=== PATIENT | male | born 1980 | race Caucasian/White ===

== ENCOUNTER 2019-07-31 23:08 | Emergency (ER) | payer OTHER ==
[2019-07-31] MEDS ORDERED: DIPH,PERTUS(ACELL)TETVAC-LF 0.5 ML VIAL IM ONE (23:12)
[2019-07-31] MEDS ORDERED: SODIUM CHLORIDE 0.9% 1,000 ML IV STA (23:12)
[2019-07-31 23:17] LABS: Glucose,Whole Blood 146 mg/dL (75-99)
[2019-07-31 23:18] VITALS: BP 140/83; PULSE 79; RESP 18; TEMP 97.7
[2019-07-31 23:21] LABS: Basophils # (A) 0.1 k/uL (0-0.2); Basophils % (A) 1 %; Eosinophils # (A) 0.1 k/uL (0-0.7); Eosinophils % (A) 2 %; HCT 44.6 % (39.0-53.0); HGB 14.7 gm/dL (13.0-17.5); Lymphocytes # (A) 2.3 k/uL (1.0-4.8); Lymphocytes % (A) 42 %; MCH 31.6 pg (25.0-35.0); MCHC 32.9 g/dL (31.0-37.0); MCV 95.9 fL (80.0-100.0); Mean Platelet Volume 6.7; Monocytes # (A) 0.2 k/uL (0-1.0); Monocytes % (A) 4 %; Neutrophils # (A) 2.6 k/uL (1.3-7.7); Neutrophils % (A) 49 %; Platelet Count 306 k/uL (150-450); RBC 4.65 m/uL (4.30-5.90); RDW 12.6 % (11.5-15.5); WBC 5.4 k/uL (3.8-10.6)
[2019-07-31] MEDS ORDERED: MORPHINE SULFATE 4 MG/ML SYRINGE IVP STA (23:27)
[2019-07-31 23:30] LABS: INR 1.1 (<1.2); Partial Thromboplastin Time 22.2 sec (22.0-30.0); Prothrombin Time 11.1 sec (9.0-12.0)
[2019-07-31 23:32] LABS: ALT 13 U/L (4-49); AST 23 U/L (17-59); African American GFR (CKD) >90 (>60 ml/min/1.73 sqM); Albumin 4.2 g/dL (3.5-5.0); Alcohol <10 mg/dL; Alkaline Phosphatase 74 U/L (38-126); Amylase 46 U/L (30-110); Anion Gap 8 mmol/L; Blood Urea Nitrogen 12 mg/dL (9-20); Calcium 9.3 mg/dL (8.4-10.2); Carbon Dioxide 25 mmol/L (22-30); Chloride 104 mmol/L (98-107); Glucose 168 mg/dL (74-99); Non-African American GFR(CKD) >90 (>60 ml/min/1.73 sqM); Potassium 4.5 mmol/L (3.5-5.1); Sodium 137 mmol/L (137-145); Total Bilirubin 0.8 mg/dL (0.2-1.3); Total Protein 6.8 g/dL (6.3-8.2)
[2019-07-31 23:34] LABS: Creatine Kinase 67 U/L (55-170)
[2019-07-31 23:48] LABS: Creatine Kinase MB 0.6 ng/mL (0.0-2.4); Troponin I <0.012 ng/mL (0.000-0.034)
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
[2019-08-01 00:11] LABS: Glucose,Whole Blood 88 mg/dL (75-99)
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
--- NOTE | 2019-08-01 00:18 | XR ---
EXAMINATION TYPE: XR pelvis AP view DATE OF EXAM: 08/01/2019 COMPARISON: NONE HISTORY: Pain TECHNIQUE: FINDINGS: The pelvic ring is intact. Proximal femurs and hip joints are intact. There is contrast in the urinary bladder. Sacroiliac joints appear normal. IMPRESSION: Normal pelvis.
--- NOTE | 2019-08-01 00:19 | XR ---
EXAMINATION TYPE: XR knee complete LT DATE OF EXAM: 08/01/2019 COMPARISON: NONE HISTORY: Pain TECHNIQUE: 3 views FINDINGS: I see no fracture nor dislocation. There is soft tissue deformity over the superior patella could be laceration. There is probably small foreign bodies. There is no sign of joint effusion. The re is spurring on the superior patella. IMPRESSION: No fracture seen. Soft tissue deformity with small foreign bodies.
--- NOTE | 2019-08-01 00:20 | XR ---
EXAMINATION TYPE: XR ankle complete bilateral DATE OF EXAM: 08/01/2019 COMPARISON: NONE HISTORY: Pain TECHNIQUE: 3 views each ankle FINDINGS: Ankle mortise is intact bilaterally. I see no fracture nor dislocation. Joint spaces are no rmal. Soft tissues appear normal. IMPRESSION: Negative bilateral ankle exam.
--- NOTE | 2019-08-01 00:21 | XR ---
EXAMINATION TYPE: XR hand complete RT DATE OF EXAM: 08/01/2019 COMPARISON: NONE HISTORY: Pain TECHNIQUE: 3 views FINDINGS: Metacarpals appear intact. I see no fracture nor dislocation. Joint spaces appear normal. IMPRESSION: Negative right hand exam. No fracture seen.
[2019-08-01 00:32] LABS: Appearance,Urine Clear (Clear); Bilirubin,Urine Negative (Negative); Blood,Urine Negative (Negative); Color,Urine Light Yellow; Glucose,Urine (UA) Negative (Negative); Ketones,Urine Negative (Negative); Leukocyte Esterase,Urine Negative (Negative); Nitrite,Urine Negative (Negative); Protein,Urine Negative (Negative); Specific Gravity,Urine 1.024 (1.001-1.035); Urobilinogen,Urine <2.0 mg/dL (<2.0)
[2019-08-01 00:45] LABS: Amphetamine Screen,Urine Not Detected (NotDetected); Barbiturate Screen,Urine Not Detected (NotDetected); Benzodiazepines Screen,Urine Not Detected (NotDetected); Cocaine Screen,Urine Not Detected (NotDetected); Methadone Screen, Urine Not Detected (NotDetected); Opiate Screen,Urine Not Detected (NotDetected); Oxycodone Screen, Urine Not Detected (NotDetected); Phencyclidine Screen,Urine Not Detected (NotDetected); Tricyclic Antidepressant,Urine Not Detected (NotDetected); Urn Cannabinoid Scrn Detected (NotDetected)
[2019-08-01] MEDS ORDERED: LIDOCAINE 1%-EPI 1:100,000 20 ML VIAL SQ ONE (00:59)
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
[2019-08-01] MEDS ORDERED: TOPICAL SKIN ADHESIVE 1 EACH AMP TOPICAL ONE (02:26)
[2019-08-01] MEDS ORDERED: ACET/COD 300 MG/30 MG STARTER PACK 6 TAB BTL PO STA (02:42)
== END 2019-08-01 03:01 | disposition home or self-care (01) ==
LOC: EC 23:08
DX: S61.411A Laceration without foreign body of right hand, initial encounter (principal); S81.012A Laceration without foreign body, left knee, initial encounter; S70.211A Abrasion, right hip, initial encounter; S90.512A Abrasion, left ankle, initial encounter; Z23 Encounter for immunization; F17.200 Nicotine dependence, unspecified, uncomplicated; V43.52XA Car driver injured in collision with other type car in traffic accident, initial encounter; Y92.410 Unspecified street and highway as the place of occurrence of the external cause
CPT/HCPCS: 99291; 12001; 12044; 90471; 96365; 96375; 96361; 36415 ×2; 93005; 86900; 86901; 80053; 82150; 82550; 82553; 83605; 83690; 84484; 85025; 85610; 85730; 86850; 81003; 80306; 80320; 73610; 72170; 73130; 73562; 71045; 72125; 70450; 71260; 74177; 73700; 90715; J2270; J0690; Q9967